=== PATIENT | male | born 1945 | race African-American/Black ===

== ENCOUNTER 2024-05-08 00:10 | Emergency (ER) | payer BC, MEDICAID ==
[~2024-05-08] VITALS: Ht 170.2 cm; Wt 63.5 kg
[2024-05-08] MEDS ORDERED: ONDANSETRON HCL/PF 4 MG/2 ML VIAL ONE (00:34)
[2024-05-08] MEDS ORDERED: MORPHINE SULFATE INJ 2 MG/ML DISP.SYRIN ONE (00:35)
[2024-05-08 00:57] LABS: BASOPHILS % (AUTO) 0.3 % (0.0-2.0); EOSINOPHILS # (AUTO) 0.1 K/uL (0.0-0.7); EOSINOPHILS % (AUTO) 0.7 % (0.0-6.0); HEMATOCRIT 41 % (39-51); HEMOGLOBIN 13.3 g/dL (13.5-17.5); LYMPHOCYTES # (AUTO) 1.2 K/uL (0.8-4.8); LYMPHOCYTES % (AUTO) 13.6 % (20.0-44.0); MEAN CORPUSCULAR HEMOGLOBIN 27 PG (26.0-33.0); MEAN CORPUSCULAR HGB CONC 32 g/dl (31.0-36.0); MEAN CORPUSCULAR VOLUME 84 fL (80-96); MONOCYTES # (AUTO) 0.7 K/uL (0.1-1.30); MONOCYTES % (AUTO) 8.3 % (2.0-12.0); NEUTROPHILS # (AUTO) 6.9 K/uL (1.8-8.9); NEUTROPHILS % (AUTO) 77.1 % (43.0-81.0); PLATELET COUNT (AUTO) 154 K/uL (150-450); RED BLOOD CELL COUNT(AUTO) 4.87 MIL/uL (4.5-6.0); RED CELL DISTRIBUTION WIDTH 15.2 % (11.5-15.0); WHITE BLOOD COUNT (AUTO) 8.9 K/uL (4.3-11.0)
[2024-05-08] MEDS: MORPHINE SULFATE INJ 2 MG/ML DISP.SYRIN IV ONE (00:58)
[2024-05-08] MEDS: IV NS 0.9% 500 ML BAG IV ONE (00:58)
[2024-05-08] MEDS: ONDANSETRON HCL/PF 4 MG/2 ML VIAL IVP ONE (00:59)
[2024-05-08 01:12] LABS: INR 1.01 (0.91-1.10); PARTIAL THROMBOPLASTIN TIME 28.2 SEC (24.3-34.3); PROTHROMBIN TIME 10.7 SECS (9.2-11.1)
[2024-05-08 01:14] LABS: CALCIUM, SERUM 9.3 mg/dL (8.5-10.1); CARBON DIOXIDE 25 mmol/L (21-32); CHLORIDE 104 mmol/L (98-107); CREATININE 1.9 mg/dL (0.6-1.3); GLUCOSE 109 mg/dL (74-106); POTASSIUM 4.1 mmol/L (3.5-5.1); SODIUM SERUM 140 mmol/L (136-145); UREA NITROGEN, BLOOD 32 mg/dL (7-18)
[2024-05-08 01:19] LABS: ALANINE AMINOTRANSFERASE 17 U/L (12-78); ALBUMIN 3.4 g/dL (3.4-5.0); ALKALINE PHOSPHATASE 101 U/L (46-116); ASPARTATE AMINOTRANSFERASE 16 U/L (15-37); BILIRUBIN,DIRECT 0.1 mg/dL (0.0-0.2); BILIRUBIN,TOTAL 0.4 mg/dL (0.2-1.0); LIPASE 77 U/L (16-77); TOTAL PROTEIN, SERUM 8.4 g/dL (6.4-8.2)
[2024-05-08 01:56] LABS: APPEARANCE,URINE CLEAR (CLEAR); BILIRUBIN,URINE NEGATIVE (NEGATIVE); BLOOD, URINE NEGATIVE Ery/uL (NEGATIVE); COLOR,URINE YELLOW (YELLOW); KETONES,URINE NEGATIVE (NEGATIVE); LEUKOCYTE ESTERASE ,URINE NEGATIVE (NEGATIVE); NITRITE, URINE NEGATIVE (NEGATIVE); PROTEIN,URINE 1+ mg/dl (NEGATIVE); UGLUCOSE NEGATIVE (NEGATIVE); UROBILINOGEN,URINE 0.2 EU/dL (0.2)
[2024-05-08 01:59] LABS: ADD URINE CULTURE NO; BACTERIA,URINE Rare /HPF (None Seen); RBC,URINE 0-2 /HPF (0-2); SQUAMOUS EPITHELIAL CELL,UR Few /HPF (None Seen); WBC,URINE 0-2 /HPF (0-3)
[2024-05-08 04:11] VITALS: BP 169/96; TEMP 98.1; O2SAT 96
== END 2024-05-08 04:12 | disposition home or self-care (01) ==
LOC: ER 00:12
DX: K56.41 Fecal impaction (principal); R11.2 Nausea with vomiting, unspecified; R00.0 Tachycardia, unspecified; M19.90 Unspecified osteoarthritis, unspecified site; I10 Essential (primary) hypertension; Z87.19 Personal history of other diseases of the digestive system; Z87.448 Personal history of other diseases of urinary system; Z87.438 Personal history of other diseases of male genital organs
CPT/HCPCS: 99285; 74176; 96374; 71045; 96375; 93005; 85025; 80048; 83690; 80076; 81001; 36415; 84484 ×2; 85730; J2405; J7040; J2270

== ENCOUNTER 2024-06-05 17:23 | Inpatient (IN) | payer BC, MEDICAID ==
[~2024-06-05] VITALS: Ht 162.6 cm; Wt 65.8 kg
[2024-06-05] MEDS ORDERED: MORPHINE SULFATE INJ 4 MG/ML DISP.SYRIN ONE (17:47)
[2024-06-05] MEDS ORDERED: ONDANSETRON HCL/PF 4 MG/2 ML VIAL ONE (17:47)
[2024-06-05 17:55] LABS: BASOPHILS % (AUTO) 0.1 % (0.0-2.0); EOSINOPHILS % (AUTO) 0.5 % (0.0-6.0); HEMATOCRIT 39 % (39-51); HEMOGLOBIN 12.6 g/dL (13.5-17.5); LYMPHOCYTES # (AUTO) 1.4 K/uL (0.8-4.8); LYMPHOCYTES % (AUTO) 15.5 % (20.0-44.0); MEAN CORPUSCULAR HEMOGLOBIN 27 PG (26.0-33.0); MEAN CORPUSCULAR HGB CONC 32 g/dl (31.0-36.0); MEAN CORPUSCULAR VOLUME 84 fL (80-96); MONOCYTES # (AUTO) 0.9 K/uL (0.1-1.30); MONOCYTES % (AUTO) 9.7 % (2.0-12.0); NEUTROPHILS # (AUTO) 6.6 K/uL (1.8-8.9); NEUTROPHILS % (AUTO) 74.2 % (43.0-81.0); PLATELET COUNT (AUTO) 186 K/uL (150-450); RED BLOOD CELL COUNT(AUTO) 4.65 MIL/uL (4.5-6.0); RED CELL DISTRIBUTION WIDTH 15.3 % (11.5-15.0); WHITE BLOOD COUNT (AUTO) 8.9 K/uL (4.3-11.0)
[2024-06-05] MEDS: MORPHINE SULFATE INJ 2 MG/ML DISP.SYRIN IV ONE (17:57)
[2024-06-05] MEDS: ONDANSETRON HCL/PF 4 MG/2 ML VIAL IVP ONE (17:57)
[2024-06-05] MEDS: IV NS 0.9% 500 ML BAG IV ONE (17:58)
[2024-06-05] MEDS ORDERED: ACETAMINOPHEN ES 500 MG TABLET ONE (18:03)
[2024-06-05 18:04] LABS: CALCIUM, SERUM 9.1 mg/dL (8.5-10.1); CARBON DIOXIDE 27 mmol/L (21-32); CHLORIDE 102 mmol/L (98-107); CREATININE 2.1 mg/dL (0.6-1.3); GLUCOSE 111 mg/dL (74-106); POTASSIUM 4.5 mmol/L (3.5-5.1); SODIUM SERUM 135 mmol/L (136-145); UREA NITROGEN, BLOOD 38 mg/dL (7-18)
[2024-06-05] MEDS: ACETAMINOPHEN ES 500 MG TABLET PO ONE (18:05)
[2024-06-05 18:10] LABS: ALANINE AMINOTRANSFERASE 17 U/L (12-78); ALBUMIN 3.2 g/dL (3.4-5.0); ALKALINE PHOSPHATASE 89 U/L (46-116); ASPARTATE AMINOTRANSFERASE 16 U/L (15-37); BILIRUBIN,DIRECT 0.1 mg/dL (0.0-0.2); BILIRUBIN,TOTAL 0.4 mg/dL (0.2-1.0); LIPASE 61 U/L (16-77); TOTAL PROTEIN, SERUM 8.2 g/dL (6.4-8.2)
[2024-06-05 22:20] VITALS: BP 135/75; TEMP 98.2; O2SAT 97
[2024-06-05] MEDS ORDERED: MAGNESIUM HYDROXIDE 30 ML UDC PO PRN (22:30)
[2024-06-05] MEDS ORDERED: ONDANSETRON HCL/PF 4 MG/2 ML VIAL IVP PRN (22:30)
[2024-06-05] MEDS ORDERED: Z GUARD REMEDY 4 OZ OINT TP PRN (22:30)
[2024-06-05] MEDS ORDERED: MAG HYDROX/AL HYDROX/SIMETH 30 ML UDC PO PRN (22:30)
[2024-06-05] MEDS ORDERED: ACETAMINOPHEN 325 MG TABLET PO PRN (22:30)
[2024-06-05] MEDS ORDERED: MORPHINE SULFATE INJ 2 MG/ML DISP.SYRIN IV PRN (22:30)
[2024-06-05] MEDS ORDERED: CEFTRIAXONE 1GM BAG (ER ONLY) 50 ML IV ONE (22:56)
[2024-06-05] MEDS: ENOXAPARIN SODIUM 30 MG/0.3 ML DISP.SYRIN SQ SCH (23:07)
[2024-06-05] MEDS: IV NS 0.9% 1,000 ML IV ONE (23:08)
[2024-06-05] MEDS: CEFTRIAXONE 1 G in IV D5W 50 ML IV ONE (23:10)
[2024-06-05] MEDS: AZITHROMYCIN 500 MG in IV D5W 250 ML IV ONE (23:30)
[2024-06-05] MEDS ORDERED: AZITHROMYCIN 500 MG VIAL ONE (23:36)
[2024-06-06] MEDS ORDERED: TAMS-12 PO (00:17)
[2024-06-06] MEDS ORDERED: HYDR-4077 PO (00:17)
[2024-06-06] MEDS ORDERED: AMLO5TAB4 PO (00:17)
[2024-06-06] MEDS ORDERED: LOSA100T31 PO (00:17)
[2024-06-06 06:53] LABS: BASOPHILS % (AUTO) 0.5 % (0.0-2.0); EOSINOPHILS # (AUTO) 0.1 K/uL (0.0-0.7); EOSINOPHILS % (AUTO) 2.1 % (0.0-6.0); HEMATOCRIT 34 % (39-51); HEMOGLOBIN 11.2 g/dL (13.5-17.5); LYMPHOCYTES # (AUTO) 1.3 K/uL (0.8-4.8); LYMPHOCYTES % (AUTO) 21.9 % (20.0-44.0); MEAN CORPUSCULAR HEMOGLOBIN 28 PG (26.0-33.0); MEAN CORPUSCULAR HGB CONC 33 g/dl (31.0-36.0); MEAN CORPUSCULAR VOLUME 85 fL (80-96); MONOCYTES # (AUTO) 0.8 K/uL (0.1-1.30); MONOCYTES % (AUTO) 13.2 % (2.0-12.0); NEUTROPHILS # (AUTO) 3.7 K/uL (1.8-8.9); NEUTROPHILS % (AUTO) 62.3 % (43.0-81.0); PLATELET COUNT (AUTO) 161 K/uL (150-450); RED BLOOD CELL COUNT(AUTO) 4.07 MIL/uL (4.5-6.0); RED CELL DISTRIBUTION WIDTH 14.8 % (11.5-15.0); WHITE BLOOD COUNT (AUTO) 5.9 K/uL (4.3-11.0)
[2024-06-06 07:25] LABS: CALCIUM, SERUM 8.7 mg/dL (8.5-10.1); CARBON DIOXIDE 24 mmol/L (21-32); CHLORIDE 107 mmol/L (98-107); CREATININE 2.1 mg/dL (0.6-1.3); GLUCOSE 86 mg/dL (74-106); MAGNESIUM 2.2 mg/dL (1.8-2.4); PHOSPHORUS 2.9 mg/dL (2.5-4.9); POTASSIUM 4.8 mmol/L (3.5-5.1); SODIUM SERUM 138 mmol/L (136-145); UREA NITROGEN, BLOOD 32 mg/dL (7-18)
[2024-06-06] MEDS ORDERED: ONDA4TAB11 PO (07:59)
[2024-06-06] MEDS ORDERED: BENZ-38 PO (07:59)
[2024-06-06] MEDS ORDERED: [UNRECOGNIZED DRUG - CODE] PO (07:59)
[2024-06-06 08:00] VITALS: BP 119/69; TEMP 97.9; O2SAT 97
[2024-06-06] MEDS: PANTOPRAZOLE 40 MG VIAL IV SCH (08:32)
[2024-06-06 12:02] LABS: APPEARANCE,URINE CLEAR (CLEAR); BILIRUBIN,URINE NEGATIVE (NEGATIVE); BLOOD, URINE NEGATIVE Ery/uL (NEGATIVE); COLOR,URINE YELLOW (YELLOW); KETONES,URINE NEGATIVE (NEGATIVE); LEUKOCYTE ESTERASE ,URINE NEGATIVE (NEGATIVE); NITRITE, URINE NEGATIVE (NEGATIVE); PROTEIN,URINE NEGATIVE (NEGATIVE); UGLUCOSE NEGATIVE (NEGATIVE); UROBILINOGEN,URINE 0.2 EU/dL (0.2)
[2024-06-06 16:00] VITALS: BP 128/61; TEMP 98.1; O2SAT 97
[2024-06-06 20:00] VITALS: BP 149/77; TEMP 98.6; O2SAT 98
[2024-06-06] MEDS: CEFTRIAXONE 1 G in IV D5W 50 ML IV SCH (20:51)
[2024-06-06] MEDS: AZITHROMYCIN 500 MG in IV D5W 250 ML IV SCH (21:43)
[2024-06-07 07:08] LABS: BASOPHILS % (AUTO) 0.3 % (0.0-2.0); EOSINOPHILS # (AUTO) 0.1 K/uL (0.0-0.7); EOSINOPHILS % (AUTO) 1.7 % (0.0-6.0); HEMATOCRIT 36 % (39-51); LYMPHOCYTES # (AUTO) 1.9 K/uL (0.8-4.8); LYMPHOCYTES % (AUTO) 28.8 % (20.0-44.0); MEAN CORPUSCULAR HEMOGLOBIN 28 PG (26.0-33.0); MEAN CORPUSCULAR HGB CONC 33 g/dl (31.0-36.0); MEAN CORPUSCULAR VOLUME 85 fL (80-96); MONOCYTES # (AUTO) 0.8 K/uL (0.1-1.30); MONOCYTES % (AUTO) 12.5 % (2.0-12.0); NEUTROPHILS # (AUTO) 3.8 K/uL (1.8-8.9); NEUTROPHILS % (AUTO) 56.7 % (43.0-81.0); PLATELET COUNT (AUTO) 168 K/uL (150-450); WHITE BLOOD COUNT (AUTO) 6.7 K/uL (4.3-11.0)
[2024-06-07 07:25] LABS: ALANINE AMINOTRANSFERASE 14 U/L (12-78); ALBUMIN 2.7 g/dL (3.4-5.0); ALKALINE PHOSPHATASE 78 U/L (46-116); ASPARTATE AMINOTRANSFERASE 18 U/L (15-37); BILIRUBIN,TOTAL 0.4 mg/dL (0.2-1.0); CALCIUM, SERUM 9.1 mg/dL (8.5-10.1); CARBON DIOXIDE 24 mmol/L (21-32); CHLORIDE 108 mmol/L (98-107); CREATINE KINASE, TOTAL 186 U/L (39-308); CREATININE 1.9 mg/dL (0.6-1.3); GLUCOSE 74 mg/dL (74-106); MAGNESIUM 2.4 mg/dL (1.8-2.4); PHOSPHORUS 3.1 mg/dL (2.5-4.9); POTASSIUM 4.6 mmol/L (3.5-5.1); SODIUM SERUM 138 mmol/L (136-145); TOTAL PROTEIN, SERUM 7.2 g/dL (6.4-8.2); UREA NITROGEN, BLOOD 33 mg/dL (7-18)
[2024-06-07 08:00] VITALS: BP 144/90; TEMP 98.4; O2SAT 98
[2024-06-07] MEDS: PANTOPRAZOLE 40 MG TABLET.DR PO SCH (08:37)
[2024-06-07 16:00] VITALS: BP 138/88; TEMP 98.2; O2SAT 98
[2024-06-07 20:00] VITALS: BP_SYST 150; BP_SYST 165; BP_DIAS 83; BP_DIAS 85; TEMP 208.6; TEMP 98.1; O2SAT 98
[2024-06-07 23:19] VITALS: BP 150/85; TEMP 98.1; O2SAT 98
[2024-06-08 06:29] LABS: BASOPHILS % (AUTO) 0.3 % (0.0-2.0); EOSINOPHILS # (AUTO) 0.1 K/uL (0.0-0.7); HEMATOCRIT 37 % (39-51); HEMOGLOBIN 12.1 g/dL (13.5-17.5); LYMPHOCYTES # (AUTO) 1.5 K/uL (0.8-4.8); LYMPHOCYTES % (AUTO) 24.4 % (20.0-44.0); MEAN CORPUSCULAR HEMOGLOBIN 28 PG (26.0-33.0); MEAN CORPUSCULAR HGB CONC 33 g/dl (31.0-36.0); MEAN CORPUSCULAR VOLUME 84 fL (80-96); MONOCYTES # (AUTO) 0.8 K/uL (0.1-1.30); MONOCYTES % (AUTO) 12.5 % (2.0-12.0); NEUTROPHILS # (AUTO) 3.7 K/uL (1.8-8.9); NEUTROPHILS % (AUTO) 60.8 % (43.0-81.0); PLATELET COUNT (AUTO) 169 K/uL (150-450); RED BLOOD CELL COUNT(AUTO) 4.38 MIL/uL (4.5-6.0); RED CELL DISTRIBUTION WIDTH 14.9 % (11.5-15.0); WHITE BLOOD COUNT (AUTO) 6.1 K/uL (4.3-11.0)
[2024-06-08 06:35] LABS: CALCIUM, SERUM 8.9 mg/dL (8.5-10.1); CARBON DIOXIDE 26 mmol/L (21-32); CHLORIDE 108 mmol/L (98-107); CREATININE 1.8 mg/dL (0.6-1.3); GLUCOSE 80 mg/dL (74-106); POTASSIUM 4.5 mmol/L (3.5-5.1); SODIUM SERUM 138 mmol/L (136-145); UREA NITROGEN, BLOOD 33 mg/dL (7-18)
[2024-06-08 06:59] LABS: MAGNESIUM 2.2 mg/dL (1.8-2.4); PHOSPHORUS 3.4 mg/dL (2.5-4.9)
[2024-06-08 07:00] VITALS: BP 139/93; TEMP 98.1; O2SAT 100
[2024-06-08] MEDS ORDERED: AZITHROMYCIN 250 MG TABLET PO SCH (21:00)
[2024-06-09 08:06] LABS: PTH, INTACT 35 pg/mL (15-65)
[2024-06-10 10:07] LABS: *SPE A/G RATIO 0.8 (0.7-1.7); *SPE ALPHA-1-GLOBULIN 0.2 g/dL (0.0-0.4); *SPE ALPHA-2-GLOBULIN 0.7 g/dL (0.4-1.0); *SPE BETA GLOBULIN 0.9 g/dL (0.7-1.3); *SPE GLOBULIN, TOTAL 3.7 g/dL (2.2-3.9); *SPE M-SPIKE Not Observed g/dL (Not Observed); *SPE PROTEIN TOTAL 6.7 g/dL (6.0-8.5); *SPEGAMMA GLOBULIN 1.8 g/dL (0.4-1.8)
== END 2024-06-08 13:50 | DRG 178 ==
LOC: ER 17:32 → MED 21:49
PROVIDERS: ATTEND Student in an Organized Health Care Education/Training Program
DX: J15.69 Pneumonia due to other Gram-negative bacteria (principal); D68.69 Other thrombophilia; E87.1 Hypo-osmolality and hyponatremia; N17.9 Acute kidney failure, unspecified; E44.1 Mild protein-calorie malnutrition; N18.4 Chronic kidney disease, stage 4 (severe); K86.2 Cyst of pancreas; J98.11 Atelectasis; R10.9 Unspecified abdominal pain; J15.9 Unspecified bacterial pneumonia; I12.9 Hypertensive chronic kidney disease with stage 1 through stage 4 chronic kidney disease, or unspecified chronic kidney disease; M89.8X9 Other specified disorders of bone, unspecified site; Z90.5 Acquired absence of kidney; Z74.01 Bed confinement status; Z90.79 Acquired absence of other genital organ(s); M19.90 Unspecified osteoarthritis, unspecified site; D63.8 Anemia in other chronic diseases classified elsewhere; K57.30 Diverticulosis of large intestine without perforation or abscess without bleeding; Z68.24 Body mass index [BMI] 24.0-24.9, adult; K86.89 Other specified diseases of pancreas
CPT/HCPCS: 36415; 71045-TC; 76705-TC; 76770-TC; 80048-TC; 80053-TC; 80076-TC; 82550-TC; 83605-TC; 83690-TC; 83735-TC; 83970; 84100-TC; 84155; 84165; 84443-TC; 85025-TC; 97110-TC; 97112-TC; 97530-TC; A4223; G0378; J0456; J0696; J1650; J2270; J2405; J2470; J7030; J7040; J7050; J7060

== ENCOUNTER 2024-07-31 18:20 | Emergency (ER) | payer BC, MEDICAID ==
[~2024-07-31] VITALS: Ht 165.1 cm; Wt 62.1 kg
[~2024-07-31 18:20] MED LIST: AMLO5TAB4 PO; BENZ-38 PO; HYDR-4077 PO; LOSA100T31 PO; ONDA4TAB11 PO; TAMS-12 PO; [UNRECOGNIZED DRUG - CODE] PO
[2024-07-31 19:48] LABS: BASOPHILS % (AUTO) 0.1 % (0.0-2.0); EOSINOPHILS % (AUTO) 0.1 % (0.0-6.0); HEMATOCRIT 38 % (39-51); HEMOGLOBIN 12.3 g/dL (13.5-17.5); LYMPHOCYTES # (AUTO) 0.2 K/uL (0.8-4.8); LYMPHOCYTES % (AUTO) 2.7 % (20.0-44.0); MEAN CORPUSCULAR HEMOGLOBIN 28 PG (26.0-33.0); MEAN CORPUSCULAR HGB CONC 32 g/dl (31.0-36.0); MEAN CORPUSCULAR VOLUME 86 fL (80-96); MONOCYTES # (AUTO) 1.2 K/uL (0.1-1.30); MONOCYTES % (AUTO) 15.5 % (2.0-12.0); NEUTROPHILS # (AUTO) 6.5 K/uL (1.8-8.9); NEUTROPHILS % (AUTO) 81.6 % (43.0-81.0); PLATELET COUNT (AUTO) 160 K/uL (150-450); RED BLOOD CELL COUNT(AUTO) 4.44 MIL/uL (4.5-6.0); RED CELL DISTRIBUTION WIDTH 15.8 % (11.5-15.0); WHITE BLOOD COUNT (AUTO) 7.9 K/uL (4.3-11.0)
[2024-07-31 20:00] LABS: CALCIUM, SERUM 9.1 mg/dL (8.5-10.1); CARBON DIOXIDE 25 mmol/L (21-32); CHLORIDE 102 mmol/L (98-107); GLUCOSE 98 mg/dL (74-106); POTASSIUM 4.4 mmol/L (3.5-5.1); SODIUM SERUM 134 mmol/L (136-145); UREA NITROGEN, BLOOD 30 mg/dL (7-18)
[2024-07-31 20:06] LABS: ALANINE AMINOTRANSFERASE 24 U/L (12-78); ALBUMIN 3.3 g/dL (3.4-5.0); ALKALINE PHOSPHATASE 91 U/L (46-116); ASPARTATE AMINOTRANSFERASE 19 U/L (15-37); BILIRUBIN,DIRECT 0.1 mg/dL (0.0-0.2); BILIRUBIN,TOTAL 0.4 mg/dL (0.2-1.0); TOTAL PROTEIN, SERUM 7.8 g/dL (6.4-8.2)
[2024-07-31 20:08] LABS: LACTIC ACID 1.3 mmol/L (0.4-2.0); PARTIAL THROMBOPLASTIN TIME 27.2 SEC (24.3-34.3); PROTHROMBIN TIME 10.3 SECS (9.2-11.1)
[2024-07-31] MEDS: IV NS 0.9% 1,000 ML BAG IV ONE (20:08)
[2024-07-31 21:24] LABS: APPEARANCE,URINE CLEAR (CLEAR); BILIRUBIN,URINE NEGATIVE (NEGATIVE); BLOOD, URINE NEGATIVE Ery/uL (NEGATIVE); COLOR,URINE YELLOW (YELLOW); KETONES,URINE NEGATIVE (NEGATIVE); LEUKOCYTE ESTERASE ,URINE NEGATIVE (NEGATIVE); NITRITE, URINE NEGATIVE (NEGATIVE); PROTEIN,URINE 1+ mg/dl (NEGATIVE); UGLUCOSE NEGATIVE (NEGATIVE); UROBILINOGEN,URINE 0.2 EU/dL (0.2)
[2024-07-31 22:01] LABS: RBC,URINE 0-2 /HPF (0-2)
[2024-07-31 22:02] LABS: ADD URINE CULTURE NO; BACTERIA,URINE 1+ /HPF (None Seen); WBC,URINE NONE SEEN /HPF (0-3)
[2024-08-01 00:23] VITALS: BP 138/92; TEMP 98.6; O2SAT 95
== END 2024-08-01 ==
LOC: ER 18:27
DX: J06.9 Acute upper respiratory infection, unspecified (principal); B97.89 Other viral agents as the cause of diseases classified elsewhere; R00.0 Tachycardia, unspecified; I10 Essential (primary) hypertension; Z79.899 Other long term (current) drug therapy; Z20.822 Contact with and (suspected) exposure to COVID-19
CPT/HCPCS: 99285; 96360; 71045; 87426; 93005; 87804 ×2; 84145; 85025; 80048; 87040 ×2; 87086; 83605; 80076; 81001; 36415; 85730; J7030

== ENCOUNTER 2024-10-16 02:07 | Emergency (ER) | payer BC, MEDICAID ==
[~2024-10-16] VITALS: Ht 170.2 cm; Wt 65.3 kg
[2024-10-16 03:24] LABS: BASOPHILS % (AUTO) 0.2 % (0.0-2.0); EOSINOPHILS % (AUTO) 0.6 % (0.0-6.0); HEMATOCRIT 43 % (39-51); HEMOGLOBIN 14.4 g/dL (13.5-17.5); LYMPHOCYTES # (AUTO) 0.6 K/uL (0.8-4.8); LYMPHOCYTES % (AUTO) 8.1 % (20.0-44.0); MEAN CORPUSCULAR HEMOGLOBIN 28 PG (26.0-33.0); MEAN CORPUSCULAR HGB CONC 34 g/dl (31.0-36.0); MEAN CORPUSCULAR VOLUME 84 fL (80-96); MONOCYTES # (AUTO) 0.6 K/uL (0.1-1.30); MONOCYTES % (AUTO) 8.6 % (2.0-12.0); NEUTROPHILS # (AUTO) 5.9 K/uL (1.8-8.9); NEUTROPHILS % (AUTO) 82.5 % (43.0-81.0); PLATELET COUNT (AUTO) 131 K/uL (150-450); RED BLOOD CELL COUNT(AUTO) 5.12 MIL/uL (4.5-6.0); RED CELL DISTRIBUTION WIDTH 15.6 % (11.5-15.0); WHITE BLOOD COUNT (AUTO) 7.2 K/uL (4.3-11.0)
[2024-10-16 03:33] LABS: CALCIUM, SERUM 8.6 mg/dL (8.5-10.1); CARBON DIOXIDE 28 mmol/L (21-32); CHLORIDE 103 mmol/L (98-107); CREATININE 1.8 mg/dL (0.6-1.3); GLUCOSE 102 mg/dL (74-106); POTASSIUM 4.2 mmol/L (3.5-5.1); SODIUM SERUM 137 mmol/L (136-145); UREA NITROGEN, BLOOD 25 mg/dL (7-18)
[2024-10-16] MEDS ORDERED: FAMOTIDINE/PF INJ 20 MG/2 ML VIAL IV ONE (03:41)
[2024-10-16] MEDS: FAMOTIDINE/PF INJ 20 MG/2 ML VIAL IV ONE (03:41)
[2024-10-16] MEDS: IV NS 0.9% 1,000 ML BAG IV ONE (03:41)
[2024-10-16] MEDS ORDERED: ONDANSETRON HCL/PF 4 MG/2 ML VIAL ONE (03:41)
[2024-10-16] MEDS: ONDANSETRON HCL/PF 4 MG/2 ML VIAL IVP ONE (03:42)
[2024-10-16 03:49] LABS: ALANINE AMINOTRANSFERASE 15 U/L (12-78); ALBUMIN 2.9 g/dL (3.4-5.0); ALKALINE PHOSPHATASE 117 U/L (46-116); ASPARTATE AMINOTRANSFERASE 18 U/L (15-37); BILIRUBIN,DIRECT 0.1 mg/dL (0.0-0.2); BILIRUBIN,TOTAL 0.6 mg/dL (0.2-1.0); LIPASE 40 U/L (16-77)
[2024-10-16] MEDS ORDERED: AZIT250T13 PO (05:58)
[2024-10-16] MEDS ORDERED: AZITHROMYCIN 250 MG TABLET ONE (06:03)
[2024-10-16] MEDS: AZITHROMYCIN 250 MG TABLET PO ONE (06:03)
[2024-10-16 06:24] VITALS: BP 138/86; TEMP 97.7; O2SAT 96
[2024-10-16 06:53] LABS: APPEARANCE,URINE CLEAR (CLEAR); BILIRUBIN,URINE NEGATIVE (NEGATIVE); BLOOD, URINE NEGATIVE Ery/uL (NEGATIVE); COLOR,URINE YELLOW (YELLOW); KETONES,URINE NEGATIVE (NEGATIVE); LEUKOCYTE ESTERASE ,URINE NEGATIVE (NEGATIVE); NITRITE, URINE NEGATIVE (NEGATIVE); PROTEIN,URINE 2+ mg/dl (NEGATIVE); UGLUCOSE NEGATIVE (NEGATIVE); UROBILINOGEN,URINE 0.2 EU/dL (0.2)
[2024-10-16 07:03] LABS: ADD URINE CULTURE NO; BACTERIA,URINE Rare /HPF (None Seen); RBC,URINE 0-2 /HPF (0-2); SQUAMOUS EPITHELIAL CELL,UR Few /HPF (None Seen); WBC,URINE 0-2 /HPF (0-3)
== END 2024-10-16 06:31 ==
LOC: ER 02:18
DX: R10.84 Generalized abdominal pain (principal); R11.10 Vomiting, unspecified; I10 Essential (primary) hypertension; Z79.899 Other long term (current) drug therapy
CPT/HCPCS: 99285; 74176; 96374; 96361; 96375; 93005; 85025; 80048; 87086; 83690; 80076; 81001; 36415; 84484; J3490; J2405; J7030